=== PATIENT | female | born 1930 | race Caucasian/White ===

== ENCOUNTER 2019-03-31 15:57 | Emergency (ER) | payer MEDICARE ==
--- NOTE | 2019-03-31 16:40 | ER Document Report ---
Entered by AZUCENA YATES SCRIBE 03/31/19 1628 Acting as scribe for:ARIELA CARLOS MD ED Hip Pain/Injury - General Chief Complaint: Hip Injury Stated Complaint: FALL/LEFT HIP PAIN Time Seen by Provider: 03/31/19 16:20 Primary Care Provider: YONI WILDER NP [Primary Care Provider] - Follow up as needed Mode of Arrival: Medic Information source: Patient Notes: This 88-year-old female patient presents to the emergency department today with complaints of left hip pain resulting from a fall that occurred just prior to arrival. Patient states that she has osteoarthritis in her right knee and sometimes it "just gives out", which is what caused her to fall today. Patient states her right knee gave out and she landed on her left hip. Patient states "my daughter also said I have a bruise on my head". Patient did not lose consciousness. TRAVEL OUTSIDE OF THE [place] IN LAST 30 DAYS: No - Related Data Allergies/Adverse Reactions: codeine [Codeine] Allergy (Verified 01/29/12 09:56) Past Medical History - General Information source: Patient, [facility] Records - Social History Smoking Status: Unknown if Ever Smoked Cigarette use (# per day): No Frequency of alcohol use: None Drug Abuse: None Lives with: Family Family History: Reviewed & Not Pertinent Patient has suicidal ideation: No Patient has homicidal ideation: No - Past Medical History Cardiac Medical History: Reports: Hx Hypertension Endocrine Medical History: Reports: Hx Hypothyroidism Musculoskeletal Medical History: Reports Hx Arthritis Review of Systems - Review of Systems Constitutional: No symptoms reported EENT: No symptoms reported Cardiovascular: No symptoms reported Respiratory: No symptoms reported Gastrointestinal: No symptoms reported Genitourinary: No symptoms reported Female Genitourinary: No symptoms reported Musculoskeletal: See HPI, Joint pain - left hip pain Skin: See HPI, Other - head hematoma Hematologic/Lymphatic: No symptoms reported Neurological/Psychological: No symptoms reported -: Yes All other systems reviewed and negative Physical Exam - Vital signs Vitals: Resp 14 03/31/19 17:00 - HEENT Head: Normocephalic, Ecchymosis - Right forehead has a small raised bruise. Eyes: Normal Pupils: PERRL Neck: Normal, Supple - Respiratory Respiratory status: No respiratory distress Breath sounds: Normal - Cardiovascular Rhythm: Regular Heart sounds: Normal auscultation Murmur: No - Abdominal Inspection: Normal Bowel sounds: Normal Tenderness: Nontender - Back Back: Normal - Extremities General upper extremity: Normal inspection General lower extremity: Other - Left hip tender, left leg slightly externally rotated. Left foot is cool, little cyanotic, does have palpable DP pulse. It does have the appearance of chronic arterial insufficiency. Right knee appears to have osteoarthritis. - Neurological Neuro grossly intact: Yes - Psychological Associated symptoms: Normal affect, Normal mood - Skin Skin Temperature: Warm Skin Moisture: Dry Skin Color: Pale Course - Re-evaluation Re-evalutation: 03/31/19 19:21 The family and patient report the patient has had several fractures that are slow to heal or have healed. 1 of these is a fracture in the neck and the patient reports that it is right at the base of the skull. A CT scan does show a fracture at the base of the odontoid with some smooth margins, therefore it is likely a chronic condition. She has not complained of neck pain, and had been looking around when she got here. This is probably chronic, but we will put her in an [place] collar for now. 03/31/19 19:29 Patient's hemoglobin today is 9.6 with a negative stool Hemoccult. On 02/13/2019 her hemoglobin was 11.4 and on 07/22/2017 it was 11.3 03/31/19 20:41 PROCEDURE: An aspirin collar was placed by myself due to the patient's odontoid fracture of unknown chronicity. The patient stated that the collar fit well, was not uncomfortable, but did not improve anything because she did not have any pain prior to placing the collar. 03/31/19 20:47 When the patient was in the CT scanner the first time, she became quite nauseous, heart rate went up and blood pressure dropped and she looked quite pale. They did not scan her and brought her back to the emergency room. When I spoke with her she said she just felt terrible and nauseous. She was given 4 mg Zofran IV and 500 mils of normal saline and she returned to her baseline, nausea was gone, she was smiling, she felt much better and at that point felt comfortable going back to the CT scanner. - Vital Signs Vital signs: Temp Pulse Resp BP Pulse Ox 8 L 142/73 H 100 03/31/19 18:36 03/31/19 18:36 03/31/19 18:36 - Laboratory Result Diagrams: 03/31/19 16:48 03/31/19 16:48 Laboratory results interpreted by me: 03/31/19 03/31/19 03/31/19 16:41 16:48 16:48 RBC 2.89 L Hgb 9.6 L Hct 27.9 L Plt Count 146 L Lymph % (Auto) 10.1 L Seg Neutrophils % 82.1 H Sodium 131.3 L Chloride 97 L Glucose 137 H AST 38 H Creatine Kinase 236 H Ur Leukocyte Esterase LARGE H - Diagnostic Test Radiology reviewed: Image reviewed, Reports reviewed - CT scan of the head shows chronic microvascular ischemic changes without acute injury. The right forehead hematoma is seen. CT scan of the neck shows a fracture at the base of the odontoid which may be an old fracture that has not healed. Chest x-ray showed a mildly displaced transverse fracture of the right eighth rib posterior laterally. No other acute findings. Left hip x-ray shows a severely displaced comminuted intratrochanteric fracture of the left hip. Irregular contour of the pubic bones may represent healed fractures. - EKG Interpretation by Me EKG shows normal: Alvin, Intervals, QRS Complexes. abnormal: ST-T Waves - Borderline anterior lateral ST abnormalities Rate: Normal - 70 Rhythm: Other - Atrial paced rhythm - Transfer of Care Care transferred to following provider: Dr. Naranjo Notes: 03/31/19 20:43 [facility] She may need medication for nausea and/or pain while she is waiting to go. At this time she is comfortable. Discharge - Discharge Clinical Impression: Closed left hip fracture Qualifiers: Encounter type: initial encounter Qualified Code(s): S72.002A - Fracture of unspecified part of neck of left femur, initial encounter for closed fracture Odontoid fracture with delayed healing Qualifiers: Fracture type: closed Qualified Code(s): S12.100G - Unspecified displaced fracture of second cervical vertebra, subsequent encounter for fracture with delayed healing Anemia Qualifiers: Anemia type: unspecified type Qualified Code(s): D64.9 - Anemia, unspecified Condition: Stable Disposition: [facility] Referrals: YONI WILDER NP [Primary Care Provider] - Follow up as needed Scribe Attestation: 03/31/19 16:42 I personally performed the services described in the documentation, reviewed and edited the documentation which was dictated to the scribe in my presence, and it accurately records my words and actions. I personally performed the services described in the documentation, reviewed and edited the documentation which was dictated to the scribe in my presence, and it accurately records my words and actions.
--- NOTE | 2019-03-31 16:41 | RADIOLOGY REPORT (SQ) ---
EXAM DESCRIPTION: HIP LEFT AP/LATERAL COMPLETED DATE/TIME: 03/31/2019 4:19 pm REASON FOR STUDY: fall + deformity COMPARISON: Pelvic CT 01/29/2012 NUMBER OF VIEWS: Two views. TECHNIQUE: AP pelvis and additional frog-leg view of the left hip. LIMITATIONS: None. FINDINGS: MINERALIZATION: Osteopenia. LEFT HIP: Comminuted intratrochanteric fracture of the left hip. The femoral head remains well seate d within the acetabulum. RIGHT HIP: No fracture or dislocation. No worrisome bone lesions. PUBIS AND ISCHIUM: Irregular cortical contours about the right and left pubic stones may represent we ll-healed fracture deformity; acute injury is not excluded. PELVIS: No fracture. SACRUM: No fracture or dislocation. No worrisome bone lesions. LOWER LUMBAR SPINE: No fracture or dislocation. No worrisome bone lesions. No significant disc disea se. SOFT TISSUES: Calcifications seen in the region of the buttocks correlates to injection granulomas de monstrated on CT imaging. OTHER: No other significant finding. IMPRESSION: Severely displaced comminuted intratrochanteric fracture of the left hip. Irregular con tours of the pubic bones may represent healed fracture deformity; acute/recurrent injury is not exclu ded. TECHNICAL DOCUMENTATION: JOB ID: [id number] [employer]- All Rights Reserved Reading location - IP/workstation name: [email or web address]
[2019-03-31] MEDS ORDERED: FENTANYL CITRATE INJ/PF 100 MCG/2 ML AMPUL IV ONE (16:43)
[2019-03-31 17:04] LABS: AMORPHOUS SEDIMENT,URINE TRACE /HPF; APPEARANCE,URINE CLOUDY; BILIRUBIN,URINE NEGATIVE (NEGATIVE); COLOR,URINE YELLOW; GLUCOSE, URINE NEGATIVE (NEGATIVE); KETONES,URINE NEGATIVE (NEGATIVE); LEUKOCYTE ESTERASE,URINE LARGE (NEGATIVE); NITRITE,URINE NEGATIVE (NEGATIVE); PROTEIN,URINE NEGATIVE (NEGATIVE); URINE SPECIFIC GRAVITY 1.014; UROBILINOGEN,URINE NEGATIVE mg/dL (<2.0)
[2019-03-31 17:38] LABS: ALKALINE PHOSPHATASE 73 U/L (38-126); ANION GAP 8 (5-19); ASPARTATE AMINO TRANSFERASE 38 U/L (14-36); BILIRUBIN,DIRECT 0.1 mg/dL (0.0-0.4); BILIRUBIN,TOTAL 0.4 mg/dL (0.2-1.3); BLOOD UREA NITROGEN 19 mg/dL (7-20); CALCIUM 8.9 mg/dL (8.4-10.2); CARBON DIOXIDE 26 mmol/L (22-30); CHLORIDE 97 mmol/L (98-107); CREATINE KINASE 236 U/L (30-135); GLUCOSE 137 mg/dL (75-110); POTASSIUM 4.2 mmol/L (3.6-5.0); TOTAL PROTEIN 6.9 g/dL (6.3-8.2)
[2019-03-31 17:42] LABS: ABSOLUTE LYMPHOCYTES (AUTO) 0.9 10^3/uL (0.5-4.7); ABSOLUTE MONOCYTES (AUTO) 0.6 10^3/uL (0.1-1.4); ABSOLUTE NEUT (AUTO) 7.4 10^3/uL (1.7-8.2); BASOPHILS % (AUTO) 0.4 % (0-2); EOSINOPHILS % (AUTO) 0.3 % (0-6); HEMATOCRIT 27.9 % (36.0-47.0); HEMOGLOBIN 9.6 g/dL (12.0-15.5); LYMPHOCYTES % (AUTO) 10.1 % (13-45); MEAN CORPUSCULAR HEMOGLOBIN 33.2 pg (27.0-33.4); MEAN CORPUSCULAR HGB CONC 34.3 g/dL (32.0-36.0); MEAN CORPUSCULAR VOLUME 97 fl (80-97); MONOCYTES % (AUTO) 7.1 % (3-13); PLATELET COUNT 146 10^3/uL (150-450); RED BLOOD COUNT 2.89 10^6/uL (3.72-5.28); RED CELL DISTRIBUTION WIDTH 13.6 % (11.5-14.0); SEGMENTED NEUTROPHILS % (AUTO) 82.1 % (42-78); TOTAL CELLS COUNTED % (AUTO) 100 %
--- NOTE | 2019-03-31 18:10 | RADIOLOGY REPORT (SQ) ---
EXAM DESCRIPTION: CHEST SINGLE VIEW COMPLETED DATE/TIME: 03/31/2019 5:58 pm REASON FOR STUDY: pre-op, hip FX COMPARISON: None. EXAM PARAMETERS: NUMBER OF VIEWS: One view. TECHNIQUE: Single frontal radiographic view of the chest acquired. RADIATION DOSE: NA LIMITATIONS: None. FINDINGS: LUNGS AND PLEURA: No opacities, masses or pneumothorax. No pleural effusion. MEDIASTINUM AND HILAR STRUCTURES: No masses. Contour normal. HEART AND VASCULAR STRUCTURES: Heart normal in size. Normal vasculature. BONES: There is a mildly displaced transverse fracture of the right 8th rib posterolaterally. Calcif ic densities seen in the region of the left glenohumeral joint likely represent calcified intraarticu lar bodies. HARDWARE: Right chest wall transvenous pacer with what appears to be a left-sided orphaned lead. OTHER: No other significant finding. IMPRESSION: Mildly displaced transverse fracture of the right 8th rib posterolaterally. No pneumoth orax. Chronic and incidental findings as detailed above. TECHNICAL DOCUMENTATION: JOB ID: [id number] [employer]- All Rights Reserved Reading location - IP/workstation name: [email or web address]
[2019-03-31] MEDS ORDERED: ONDANSETRON HCL INJ/PF 4 MG/2 ML SDV ONE (18:11)
[2019-03-31] MEDS ORDERED: NORMAL SALINE 1000 ML 1,000 ML IV ONE (18:12)
[2019-03-31] MEDS ORDERED: ONDANSETRON HCL INJ/PF 4 MG/2 ML SDV IV ONE (18:12)
--- NOTE | 2019-03-31 19:11 | RADIOLOGY REPORT (SQ) ---
EXAM DESCRIPTION: CT HEAD WITHOUT COMPLETED DATE/TIME: 03/31/2019 6:59 pm REASON FOR STUDY: fall, hit head COMPARISON: None. TECHNIQUE: Axial images acquired through the brain without intravenous contrast. Images reviewed wi th bone, brain and subdural windows. Additional sagittal and coronal reconstructions were generated. Images stored on PACS. All CT scanners at this facility use dose modulation, iterative reconstruction, and/or weight based d osing when appropriate to reduce radiation dose to as low as reasonably achievable (ALARA). [facility]: Dose Right [facility]: CareDose [facility]: Dose Right [facility]: Teradose 4D [facility]: Smart [employer] RADIATION DOSE: CT Rad equipment meets quality standard of care and radiation dose reduction techniq ues were employed. CTDIvol: 53.2 mGy. DLP: 1230 mGy-cm.mGy. LIMITATIONS: None. FINDINGS: VENTRICLES: Prominent. CEREBRUM: No masses. No hemorrhage. No midline shift. Areas of low density in the white matter mos t likely due to chronic micro-vascular ischemic change. No evidence for acute infarction. CEREBELLUM: No masses. No hemorrhage. No alteration of density. No evidence for acute infarction. EXTRAAXIAL SPACES: Age-related involutional change. No fluid collections. No masses. ORBITS AND GLOBE: No intra- or extraconal masses. Normal contour of globe without masses. CALVARIUM: No fracture. PARANASAL SINUSES: No fluid or mucosal thickening. SOFT TISSUES: No mass or hematoma. OTHER: No other significant finding. IMPRESSION: CHRONIC CHANGES OF ATROPHY AND MICROVASCULAR ISCHEMIA. NO ACUTE PROCESS. EVIDENCE OF ACUTE STROKE: NO. TECHNICAL DOCUMENTATION: JOB ID: [id number] Quality ID # [id number]: Final reports with documentation of one or more dose reduction techniques (e.g., Au tomated exposure control, adjustment of the mA and/or kV according to patient size, use of iterative reconstruction technique) 2010 [employer]- All Rights Reserved Reading location - IP/workstation name: [email or web address]
--- NOTE | 2019-03-31 19:16 | RADIOLOGY REPORT (SQ) ---
EXAM DESCRIPTION: CT CERVICAL SPINE WITHOUT COMPLETED DATE/TIME: 03/31/2019 6:59 pm REASON FOR STUDY: fall, hit head, unhealed prior cervical fx's COMPARISON: None. TECHNIQUE: Axial images acquired through the cervical spine without intravenous contrast. Images re viewed with lung, soft tissue and bone windows. Reconstructed coronal and sagittal MPR images review ed. Images stored on PACS. All CT scanners at this facility use dose modulation, iterative reconstruction, and/or weight based d osing when appropriate to reduce radiation dose to as low as reasonably achievable (ALARA). [facility]: Dose Right [facility]: CareDose [facility]: Dose Right [facility]: Teradose 4D [facility]: Smart [employer] RADIATION DOSE: CT Rad equipment meets quality standard of care and radiation dose reduction techniq ues were employed. CTDIvol: 14.9 mGy. DLP: 290 mGy-cm. mGy. LIMITATIONS: None. FINDINGS: ALIGNMENT: Anatomic. MINERALIZATION: Normal. VERTEBRAL BODIES: There is a fracture at the base of the odontoid. Approximately 4 mm separation of the fracture fragments with mild sclerosis. No anterior or posterior displacement. The remainder of the vertebrae are intact. DISCS: Multilevel disc space narrowing with osteophytes. FACETS, LATERAL MASSES, POSTERIOR ELEMENTS: Facet arthropathy. No fractures. No dislocation. No ac maikel findings. HARDWARE: None in the spine. VISUALIZED RIBS: No fractures. LUNG APICES AND SOFT TISSUES: No significant or acute findings. OTHER: No other significant finding. IMPRESSION: 1. FRACTURE AT THE BASE OF THE ODONTOID. THIS FINDING WAS DISCUSSED WITH DR. CARLOS. THE FAMILY REPO RTS THAT THE PATIENT HAS A HISTORY OF A NECK FRACTURE WHICH HAS NOT HEALED. PRESUMABLY THE CURRENT F INDING COULD REPRESENT THE OLD FRACTURE. HOWEVER, WOULD RECOMMEND CONSERVATIVE APPROACH WITH NECK IM MOBILIZATION UNTIL THIS CAN BE CONFIRMED. 2. CHRONIC DEGENERATIVE CHANGES. NO OTHER ACUTE FINDINGS. COMMENT: Pertinent findings on the imaging study reported as a CRITICAL RESULT to ARIELA CARLOS MD at19:10 on 03/31/2019. Category of Critical Result: Cervical fracture. See above discussion. TECHNICAL DOCUMENTATION: JOB ID: [id number] Quality ID # [id number]: Final reports with documentation of one or more dose reduction techniques (e.g., Au tomated exposure control, adjustment of the mA and/or kV according to patient size, use of iterative reconstruction technique) 2010 [employer]- All Rights Reserved Reading location - IP/workstation name: [email or web address]
--- NOTE | 2019-03-31 22:00 | ER Document Report ---
Doctor's Note Notes: 03/31/19 21:59 Transport has arrived to take patient to [facility]. This MD went to the patient's bedside prior to her transport. She is lying in bed awake and in no acute discomfort at this time.
[2019-03-31 22:16] VITALS: BP 127/77
--- NOTE | 2019-04-01 12:24 | EKG REPORT ---
SEVERITY:- ABNORMAL ECG - SINUS RHYTHM BORDERLINE T ABNORMALITIES, ANT-LAT LEADS : Confirmed by: Cesar Quintero 01-Apr-2019 12:23:12
== END 2019-03-31 22:16 | disposition short-term general hospital (02) ==
LOC: ER 15:57
DX: S72.002A Fracture of unspecified part of neck of left femur, initial encounter for closed fracture (principal); S00.83XA Contusion of other part of head, initial encounter; S12.100G Unspecified displaced fracture of second cervical vertebra, subsequent encounter for fracture with delayed healing; W18.30XA Fall on same level, unspecified, initial encounter; Z91.81 History of falling; D64.9 Anemia, unspecified; R11.0 Nausea; I10 Essential (primary) hypertension; Z88.6 Allergy status to analgesic agent
CPT/HCPCS: 93005; 99285; 96361; 51702; 96374; 96375; 86900; 86901; 36415; 86850; 82550; 85025; 80053; 81001; 84484; 71045; 73502; 70450; 72125; 93010; L0172; J3010; J2405; J7030